=== PATIENT | female | born 1940 | race Caucasian/White ===

== ENCOUNTER → 2023-10-28 14:37 | Outpatient (REF) | payer MEDICARE, BC, SELFPAY | LOC: HWRAD 14:37 | PROVIDERS: ATTENDING PHYSICIAN Family Medicine | DX: Z78.0 Asymptomatic menopausal state (principal); R13.19 Other dysphagia; R07.89 Other chest pain | CPT/HCPCS: 71046; 77080 ==

== ENCOUNTER → 2023-11-12 10:35 | Outpatient (REF) | payer MEDICARE, BC, SELFPAY | LOC: HWRAD 10:35 | PROVIDERS: ATTENDING PHYSICIAN Family Medicine | DX: E04.1 Nontoxic single thyroid nodule (principal) | CPT/HCPCS: 76536 ==

== ENCOUNTER → 2023-12-18 14:45 | Outpatient (REF) | payer MEDICARE, BC, SELFPAY | LOC: RCS 14:45 | PROVIDERS: ATTENDING PHYSICIAN Internal Medicine Cardiovascular Disease; FAMILY PHYSICIAN Family Medicine | DX: I25.10 Atherosclerotic heart disease of native coronary artery without angina pectoris (principal); I42.9 Cardiomyopathy, unspecified; I10 Essential (primary) hypertension | CPT/HCPCS: 93306 ==

== ENCOUNTER → 2024-12-16 13:00 | Outpatient (REF) | payer MEDICARE, BC, SELFPAY | LOC: SDSPAT 13:00 | PROVIDERS: ATTENDING PHYSICIAN Student in an Organized Health Care Education/Training Program; FAMILY PHYSICIAN Family Medicine; REFERRING PHYSICIAN Internal Medicine Cardiovascular Disease | DX: I48.0 Paroxysmal atrial fibrillation (principal); I47.29 Other ventricular tachycardia | CPT/HCPCS: 93005 ==

== ENCOUNTER 2024-12-21 08:18 | Day surgery (SDC) | payer MEDICARE, BC, SELFPAY ==
[2024-12-16 13:26] VITALS: BMI 32.1
[2024-12-21 09:09] VITALS: BMI 32.0
== END 2024-12-21 10:30 | disposition home or self-care (01) ==
LOC: CATH 08:18
PROVIDERS: ATTENDING PHYSICIAN Student in an Organized Health Care Education/Training Program; FAMILY PHYSICIAN Family Medicine; OTHER PHYSICIAN Internal Medicine Cardiovascular Disease
DX: I48.91 Unspecified atrial fibrillation (principal); I47.20 Ventricular tachycardia, unspecified; I11.0 Hypertensive heart disease with heart failure; I50.42 Chronic combined systolic (congestive) and diastolic (congestive) heart failure; I42.9 Cardiomyopathy, unspecified; E78.5 Hyperlipidemia, unspecified; M85.80 Other specified disorders of bone density and structure, unspecified site; G47.33 Obstructive sleep apnea (adult) (pediatric); K21.9 Gastro-esophageal reflux disease without esophagitis; E66.9 Obesity, unspecified; Z68.32 Body mass index [BMI] 32.0-32.9, adult; Z79.899 Other long term (current) drug therapy; Z79.01 Long term (current) use of anticoagulants; Z88.1 Allergy status to other antibiotic agents; Z88.8 Allergy status to other drugs, medicaments and biological substances; Z91.048 Other nonmedicinal substance allergy status; K22.2 Esophageal obstruction; I49.1 Atrial premature depolarization; I25.10 Atherosclerotic heart disease of native coronary artery without angina pectoris; E11.9 Type 2 diabetes mellitus without complications; Z90.710 Acquired absence of both cervix and uterus
CPT/HCPCS: 93312; 93320; 93325; 92960; 93005

== ENCOUNTER → 2025-03-08 11:11 | Outpatient (REF) | payer MEDICARE, BC, SELFPAY | LOC: HWRCS 11:11 | PROVIDERS: ATTENDING PHYSICIAN Internal Medicine Cardiovascular Disease; FAMILY PHYSICIAN Family Medicine | DX: I42.9 Cardiomyopathy, unspecified (principal); I48.0 Paroxysmal atrial fibrillation | CPT/HCPCS: 78452; 93017; A9500; J2785 ==

== ENCOUNTER 2025-05-01 21:30 | Inpatient (IN) | payer MEDICARE, BC, SELFPAY ==
[2025-05-01] VITALS (9 sets, daily range): BP systolic 115–168; BP diastolic 48–84; BMI 32.7
[2025-05-01 17:56] LABS: Hematocrit 33.4 % (37.0-47.0); Hemoglobin 10.8 g/dL (12.0-16.0); Mean Corp Hgb Conc. 32.3 g/dL (33.0-37.0); Mean Corpuscular Volume 93.0 fL (81.0-99.0); Nucleated Red Blood Cells % 0 %; Platelet Count 279 10^3/uL (130-400); Red Cell Dist. Width 14.1 % (11.5-14.5)
[2025-05-01 18:09] LABS: ALT (SGPT) 90 U/L (0-35); AST (SGOT) 57 U/L (14-36); Albumin 3.5 g/dl (3.5-5.0); Alkaline Phosphatase 88 U/L (38-126); Blood Urea Nitrogen 19 mg/dl (7-17); Calcium 8.8 mg/dl (8.4-10.2); Carbon Dioxide 28 mmol/L (22-30); Chloride 99 mmol/L (98-107); Glucose 133 mg/dl (70-99); Sodium 131 mmol/L (135-145); Total Protein 5.7 g/dl (6.3-8.2); eGFR > 60.00
[2025-05-01 18:13] LABS: Troponin I 0.014 ng/ml
[2025-05-01 18:15] LABS: Potassium 4.2 mmol/L (3.5-5.1)
--- NOTE | 2025-05-01 18:15 | ED.GENMED ---
History of Present Illness
General
Chief Complaint: Breathing Problem
Source: patient and family
Exam Limitations: none
Time Seen by Provider: 05/01/25 18:12
History of Present Illness
History of Present Illness:
Patient complaining of significant dyspnea on exertion progressive over 3 to 4 days. Also bilateral leg edema. No chest pain chest pressure or syncope. She did fall and hit her head 3 days ago however. No ongoing headache. Patient is
anticoagulated. History of PAF. Cardioverted in March 2025 minimal to no symptoms at rest
Past History
Past History
ED Past Medical History: CAD, HTN and Hypercholesterolemia
ED Past Surgical History: Cardiac, Gynecological and Tonsilectomy
Social History
Living: with family
Review of Systems
Review of Systems
All Other Systems: Not applicable
Constitutional: Denies fever
Respiratory: Denies cough
Cardiac: Denies chest pain or syncope
Phy Exam
Physical Exam
Physical Exam:
GENERAL: Alert and oriented in no apparent distress. No obvious scalp trauma
EYE: Orbits normal.
NECK: Supple, nontender
ENT: Pharynx without erythema
CARDIAC: Mildly irregular normal rate.
LUNGS: No respiratory distress at rest. Decreased breath sounds diffusely. A few dry rales in the bases
ABDOMEN: Soft, without focal tenderness or distention
NEUROLOGICAL: Alert and oriented , grossly non-focal
SKIN: Warm and dry, no rash or lesion, no discoloration, skin intact.
MUSCULOSKELETAL: Moderate bilateral lower extremity pitting edema
PSYCH: Normal and appropriate interaction.
Scores
Heart Failure Risk
Heart Failure Risk Score: Yes
History of Stroke or TIA: No
History of intubation for respiratory distress: No
Heart rate on ED arrival >/= 110: No
SaO2 <90% on arrival on room air: No
HR >/=110 during 3min walk test (or too ill to perform test): Yes
ECG has acute ischemic changes: No
Urea >/=12mmol/L (BUN 33.6mg/dL): No
Serum CO2>/=35mmol/L: No
Troponin I or T elevated to UT Level (0.4mg/dL): No
NT-proBNP >/=5,000ng/L (5,000pg/ml): Yes
HF Risk Score: 3
Admission Status: HIGH RISK 15.9% Consider SNF treatment or admission to hospital
Course
Orders/Labs/Results
Orders:
Orders
05/01/25 17:29
Electrocardiogram (*1) Urgent
Reason for Study: Shortness of Breath
CT Head W/o Iv Contrast Urgent
Comment:
Reason For Exam: Head injury
CR Chest - 2 Views Urgent
Comment:
Reason For Exam: SOB
05/01/25 17:30
EKG- Treatment ONCE
05/01/25 17:37
Complete Blood Count/With Diff Urgent
Comprehensive Metabolic Panel Urgent
NT-proBNP Urgent
Troponin I Urgent
05/01/25 18:13
CT Cervical Spine W/o Iv Contr Urgent
Comment:
Reason For Exam: Head injury
Cardiac Monitoring- Treatment ONCE
05/01/25 18:49
Furosemide [Lasix] 40 mg IV NOW STA
Abnormal Lab Results
05/01/25
17:37
RBC 3.59 L 10^6/uL
(4.20-5.40)
Hgb 10.8 L g/dL
(12.0-16.0)
Hct 33.4 L %
(37.0-47.0)
MCHC 32.3 L g/dL
(33.0-37.0)
Absolute Lymphs (auto) 1.0 L 10^3/uL
(1.2-3.4)
Absolute Monos (auto) 0.7 H 10^3/uL
(0.1-0.6)
Lymphocytes % 14.3 L %
(20.5-51.1)
Monocytes % 9.6 H %
(1.7-9.3)
Sodium 131 L mmol/L
(135-145)
BUN 19 H mg/dl
(7-17)
Glucose 133 H mg/dl
(70-99)
AST 57 H U/L
(14-36)
ALT 90 H U/L
(0-35)
Total Protein 5.7 L g/dl
(6.3-8.2)
05/01/25 17:37
05/01/25 17:37
Vital Signs
Initial and Last Documented VS:
Initial Vital Signs
Temp Pulse Resp BP Pulse Ox
97.5 F 65 20 168/81 97
05/01/25 17:25 05/01/25 17:25 05/01/25 17:25 05/01/25 17:25 05/01/25 17:25
Last Documented Vital Signs
Temp Pulse Resp BP Pulse Ox
97.5 F 71 20 116/48 99
05/01/25 17:25 05/01/25 19:03 05/01/25 17:25 05/01/25 19:03 05/01/25 18:38
MDM/Problems Addressed
Differential Diagnosis Includes:
Patient with moderate weight gain, peripheral edema, dyspnea on exertion. Would all be consistent with CHF. Possibly her currently being in atrial fibrillation with an EF of 42% may be the issue. However she is very rate controlled. This also
could be an ischemic presentation. IV Lasix at admission. As far as hitting her head she is awake and alert this happened days ago. CT scans reviewed by myself and are unremarkable. If remained stable will be admitted medically
*Radiology
Radiology exam reviewed: preliminary read by ED provider (Mild cephalization)
*Pulse Oximetry
SaO2: 97
Oxygen Mode of Delivery: Room air
Patient hypoxic: no
*EKG
Interpretation: abnormal
Comparison EKG: changes noted
Heart Rate: 72
Rate: normal
Rhythm: a-fib
Saffell: left axis deviation
QRS Pattern: left vent hypertrophy
Ischemia: non-specific ST changes
*Critical Care Note
Total Time (30-74mins, 75-104mins- exclusive of procedures): Not Applicable
ED Attending Note
-
Portions of this chart may have been created with voice recognition software.� Occasional wrong word or��sound alike� substitutions may have occurred due to the inherent limitations of voice recognition software.
Discharge Plan
Departure
Patient Disposition: Admit
Date of Disposition: 05/01/25
Time of Disposition: 19:26
Presentation/result/management discussed w/ accepting MD/DO: Hospitalist
Discharge Problem:
Dyspnea on exertion/CHF, Paroxysmal rate controlled atrial fibril, Possible ischemic heart disease, Recent minor head injury/anticoagulated
Prescriptions:
No Action
atorvastatin 20 mg Tablet
20 mg PO DAILY
isosorbide mononitrate 30 mg Tablet Extended Release 24 Hr
30 mg PO QPM
amlodipine 5 mg Tablet
5 mg PO DAILY
omeprazole 40 mg Capsule,Delayed Release(Dr/Ec)
40 mg PO DAILY
potassium chloride [Klor-Con M20] 20 mEq Tablet,Er Particles/Crystals
20 meq PO QPM
valsartan-hydrochlorothiazide 160-25 mg Tablet
1 tab PO DAILY
calcium carbonate-vitamin D3 [Calcium 500 + D] 500 mg-10 mcg (400 unit) Tablet
1 tab PO QPM
Eliquis 5 mg Tablet
5 mg PO BID
diphenhydramine HCl [Benadryl] 25 mg Capsule
25 mg PO HSPRN PRN (Reason: sleep)
nebivolol [Bystolic] 20 mg Tablet
20 mg PO DAILY
Referrals:
NONE,* [Active, Internal Medicine]
Interventions
Interventions:
*Risk Screen - Suicide Last Done: 05/01/25 18:42
*General Assessment Last Done: 05/01/25 17:25
*Neglect/Abuse Screening Last Done: 05/01/25 18:42
*ED COVID-19 Vaccine History Last Done: 05/01/25 18:42
*ED Influenza Vaccine History Last Done: 05/01/25 18:42
ED- Cardiac Assessment Last Done: 05/01/25 18:42
ED- Pulmonary Assessment Last Done: 05/01/25 18:42
Discharge Date and Time
Print Language: MARSHALLESE
[2025-05-01] MEDS: LASIX 40 MG IV (19:03)
--- NOTE | 2025-05-01 20:18 | HPS.HSE ---
Family Physician
-
Family Physician: Neno Sapp
Chief Complaint
-
SoB, leg swelling and Fall
History of Present Illness
84F HX AF recent CV in Mar 2025 on Eliquis, HX CAD, HTN, HLD seen at ER:
- pw b/l lower leg swelling
- SOB with exertion for last 3-4 days
- fell and hit back , and side of the head 3 days ago
- denied ongoing GALLAGHER
Medical History
Past Medical History
Past Medical History: Reports Arrhythmia (HX Prx AF ), HTN and Hypercholesterolemia
Past Surgical History: Reports Cardiac, Gynocological and Tonsilectomy
Social History
Tobacco: Non-smoker
Living: With Family
Family History
Family History: Not pertinent
Allergies / Home Medications
Allergies reflects when Allergies were last updated in [employer].
Home Medications with original date entered in [employer]
Allergy/Medication List:
Allergies
Allergy/AdvReac Type Severity Reaction Status Date / Time
adhesive tape (Adhesive Tape) Allergy Rash Verified 05/01/25 17:25
bacitracin (From Neosporin) Allergy Rash Verified 05/01/25 17:25
bacitracin zinc (From Allergy Unknown Verified 05/01/25 17:25
Neosporin)
gramicidin D (From Neosporin) Allergy Rash Verified 05/01/25 17:25
moxifloxacin HCl (From Allergy headaches Verified 05/01/25 17:25
Avelox)
neomycin sulfate (From Allergy Rash Verified 05/01/25 17:25
Neosporin)
polymyxin B (From Neosporin) Allergy Rash Verified 05/01/25 17:25
polymyxin B sulfate (From Allergy Rash Verified 05/01/25 17:25
Neosporin)
Home Medications
amlodipine 5 mg tablet 5 mg PO DAILY Blood Pressure 12/16/24
apixaban 5 mg tablet (Eliquis) 5 mg PO BID Blood Clot Prevention/Tx 12/16/24
atorvastatin 20 mg tablet 20 mg PO DAILY High Cholesterol 12/16/24
calcium 500 mg (as carbonate)-vitamin D3 10 mcg (400 unit) tablet (Calcium 500 + D) 1 tab PO QPM Supplement 12/16/24
isosorbide mononitrate 30 mg tablet,extended release 24 hr 30 mg PO QPM Heart Disease/Condition 12/16/24
omeprazole 40 mg capsule,delayed release 40 mg PO DAILY Gastrointestinal Issue 12/16/24
potassium chloride 20 mEq tablet,extended release(part/cryst) (Klor-Con M) 20 meq PO QPM Electrolyte Repletion 12/16/24
valsartan 160 mg-hydrochlorothiazide 25 mg tablet 1 tab PO DAILY Heart Disease/Condition 12/16/24
diphenhydramine HCl 25 mg capsule (Benadryl) 25 mg PO HSPRN PRN sleep 12/21/24
nebivolol 20 mg tablet (Bystolic) 20 mg PO DAILY Heart Disease/Condition 05/01/25
Review of Systems
-
Constitutional: Reports No Symptoms
EENT: Reports No Symptoms
Respiratory: Reports See HPI
Cardiac: Reports See HPI; Denies Chest Pain
Abdomen/GI: Reports No Symptoms
: Reports No Symptoms
Musculoskeletal: Reports No Symptoms
Skin: Reports No Symptoms
Neurological: Reports No Symptoms
Endocrine: Reports No Symptoms
Hematologic/Lymphatic: Reports No Symptoms
Psych: Reports No Symptoms
Physical Exam
Vital Signs
Vital Signs
Temp Pulse Resp BP Pulse Ox
97.5 F 71 20 116/48 99
05/01/25 17:25 05/01/25 19:03 05/01/25 17:25 05/01/25 19:03 05/01/25 18:38
Physical Exam
General: Well Developed, Well Nourished and No Apparent Distress
HEENT: NormoCephalic, Moist mucous membranes and Atraumatic
Respiratory: Clear
Cardiac: S1/S2 and Regular Rhythm; No Murmur or Rub
GI: Soft, Non Tender, Non Distended and Normal Bowel Sounds; No Organomegaly
Rectal: Deferred by Provider
Musculoskeletal: No Clubbing, No Cyanosis and No Edema
Skin: No Rash
Neuro: Nonfocal/grossly intact
Laboratory Results
-
05/01/25 17:37
05/01/25 17:37
Laboratory Results
Total Bilirubin 0.6 mg/dl (0.2-1.3) 05/01/25 17:37
AST 57 U/L (14-36) H 05/01/25 17:37
ALT 90 U/L (0-35) H 05/01/25 17:37
Alkaline Phosphatase 88 U/L (38-126) 05/01/25 17:37
Troponin I 0.014 ng/ml 05/01/25 17:37
Impression/Plan
-
Vital Signs
Temp Pulse Resp BP Pulse Ox
97.5 F 71 20 116/48 99
05/01/25 17:25 05/01/25 19:03 05/01/25 17:25 05/01/25 19:03 05/01/25 18:38
Wt trend
12/16/24
13:26 12/21/24
09:09 05/01/25
18:51
Actual Weight 74.5 kg 74.389 kg 76.8 kg
05/25/15 05/01/25
15:22 17:37
Hgb 12.2 10.8 L
MCV 89.7 93.0
Sodium 131 L
BUN 19 H
Creatinine 0.8
eGFR > 60.00
Troponin I 0.014
Boj-X-Dozsilrdcuy Pept 7280
CXR:
No acute cardiopulmonary process.
HCT
No acute intracranial abnormality.
CX spine CT wo IV
No CT evidence for an acute posttraumatic abnormality of the cervical spine.
EKG:
UNDETERMINED RHYTHM
LEFT AXIS DEVIATION
LEFT VENTRICULAR HYPERTROPHY WITH QRS WIDENING ( R in aVL , Everardo product )
ABNORMAL QRS-T ANGLE, CONSIDER PRIMARY T WAVE ABNORMALITY
ABNORMAL ECG
WHEN COMPARED WITH ECG OF 21-Dec-2024 09:57,
CURRENT UNDETERMINED RHYTHM PRECLUDES RHYTHM COMPARISON, NEEDS REVIEW
03/08/[address] [facility] Cardiac Nuc Radha Stress
Small, moderate fixed apical lateral defect consistent with normal wall motion most consistent with soft tissue attenuation.
Negative ECG for ischemia with Lexiscan infusion.
Systolic function is mildly reduced. The ejection fraction is 42%.
Mild hypokinesis of the basal and mid inferior and inferoseptal rodas. No associated infarction or ischemia seen in this distribution.
Would consider further evaluation with echocardiogram if clinically significant.
Stress Risk is moderate risk study (1 - 3% TN or /year)
12/21/24 JOEL
LVEF 50-55%.
No significant valvular disease.
No left atrial appendage thrombus.
No significant change compared to prior echocardiogram in December 2023.
NO PRIOR hospitalist admission:
ASSESSMENT & PLAN
Pending Rx reconciliation
Acute progressive Faulkner with adequate Oxygenation on RA + New b/l Flynn edema
Elevated p BNP
LVEF 42% NMNuc Radha Stress 03/08/25
HX CAD - suspect ICM
- presumed acute HF suspect decompensated HFrEF
- IV lasix 20 mg BID
- Daily IOs, Wt
- Daily BMP
- CBC card consult to consider ischemic w/u ( Known to Dr Esteban)
HX AF recent CV in Mar 2025
- on Eliquis
- on Nebivolol
HX CAD
- No CP
- NEG TPNI
- unremarkable EKG
- c/w IMN and BB
HLD
- c/w Lipitor
pHTN
- c/w Valsartan
- Hold HCTZ while IV Diuresis
DVT Px:on chr Eliquis
Full code
IP TLM
Case dw RN daughter at bed side
--- NOTE | 2025-05-01 22:04 | PTCARENOTE ---
Patient arrived from the ED via stretcher accompanied by family. Patient ambulated into the room with assistance of staff. AAOx3, VSS. Has frequency and urgency due to diuresis. Brought own briefs from home. No use of assisted devices. Patient
oriented to the room and updated on plan of care. Call long is within reach.
[2025-05-01] MEDS: ELIQUIS 5 MG PO (22:42)
[2025-05-02 03:40] VITALS: BP 140/69
[2025-05-02 05:13] VITALS: BMI 32.5
--- NOTE | 2025-05-02 07:43 | W.PN.HOSP.TC ---
Today's Communication/Plan
-
see a/p
Assessment / Plan
Assessment / Plan
Physical Exam
General: no acute distress, appears comfortable at this time.
HEENT: NormoCephalic, Moist mucous membranes and Atraumatic, hard of hearing
Respiratory: Clear
Cardiac: S1/S2 Irregularly irregular Rhythm; No Murmur or Rub
GI: Soft, Non Tender, Non Distended and Normal Bowel Sounds; No Organomegaly
Musculoskeletal: No Clubbing, No Cyanosis and No Edema
Skin: No Rash
Neuro: AOx3 conversant coherent
84F HX AF recent Cardioversion in Mar 2025 on Eliquis, HX CAD, HTN, HLD pw b/l lower leg swelling and SOB with exertion.
Acute progressive Faulkner with adequate Oxygenation on RA + New b/l Flynn edema
Elevated p BNP
LVEF 42% NMNuc Radha Stress 03/08/25
HX CAD - suspect ICM
- presumed acute HF suspect decompensated HFrEF
- IV lasix 20 mg BID
- Daily IOs, Wt
- Daily BMP
- ECHO appreciated EF35-40% mod severe tricuspid regurgitation
- Cardio consult appreciated spironolactone started
HX AF recent CV in Mar 2025
- on Eliquis
- on Nebivolol
HX CAD
- No CP
- NEG TPNI
- unremarkable EKG
- c/w IMN and BB
HLD
- c/w Lipitor
pHTN
- c/w Valsartan
- Hold HCTZ while IV Diuresis
DVT Px:on chr Eliquis
Full code
IP TLM
Discussed with patient and patient's daughter Asuncion
I spent a total of 45 minutes with the patient or on the floor. More than 50% of this time involved counseling and coordination of care.
Anticipated Discharge: 24 - 48 hours
Subjective/Interval History
-
Date of Service: May 02, 2025
Seen and examined at bedside in no acute distress sitting up comfortably in bed. Hard of hearing. Reports significant improvement in overall symptoms including SOB and lower ext swelling. Daughter Asuncion present during evaluation.
Objective Data
-
Labs:
Laboratory Results
05/02/25
07:03
Sodium Pending
Potassium Pending
Chloride Pending
Carbon Dioxide Pending
BUN Pending
Creatinine Pending
Glucose Pending
Calcium Pending
Vital Signs:
Vital Signs
Temp Pulse Resp BP Pulse Ox
98.3 F 74 18 140/69 94
05/02/25 03:40 05/02/25 03:40 05/02/25 03:40 05/02/25 03:40 05/02/25 03:40
I&O
05/01/25 05/02/25 05/03/25
06:59 06:59 06:59
Intake Total 480 / 480
Output Total 1350 / 1350
Balance -870 / -870
[2025-05-02 08:04] VITALS: BP 138/61
[2025-05-02 08:51] LABS: Blood Urea Nitrogen 16 mg/dl (7-17); Calcium 8.6 mg/dl (8.4-10.2); Carbon Dioxide 31 mmol/L (22-30); Chloride 99 mmol/L (98-107); Estimated Creatinine Clearance 54 ml/min; Glucose 99 mg/dl (70-99); HDL Cholesterol 43 mg/dl; LDL Cholesterol, Calculated 46 mg/dl; Potassium 3.5 mmol/L (3.5-5.1); Sodium 133 mmol/L (135-145); Very Low Density Lipoprotein 10 mg/dl (0-30); eGFR > 60.00
--- NOTE | 2025-05-02 08:52 | CON.CAR ---
Addendum entered and electronically signed by Grey Linn MD 05/02/25 11:22:
I saw and evaluated the patient, and I provided the substantive portion of the medical decision making.
I reviewed and agree with the note by Ms Tompkins and it accurately reflects our care.
I personally performed the medical decision making of the this encounter and my assessment and plan is below:
Recent stress test showed normal perfusion, however, EF was mild to moderately reduced at 40%. Echocardiogram today shows EF 35-40%. Possibly in relation to worsening of A-fib. Continue IV diuresis. We will ferrara Entresto. Start spironolactone
12.5 mg.
Original Note:
Consultation
Consultation Request
Date/Time Consultation Requested: 05/01/2025 22:30
Date/Time Consultation Performed: 05/02/2025 09:00
Requesting Provider: Dr. Ashley
Performing Provider: RAJIV Eaton for Dr. Linn
Reason for Consultation: Acute on chronic heart failure
Medical History
-
Chief Complaint: Dyspnea on exertion
History of Present Illness:
Jennifer Nair is an 84-year-old female (known to Dr. Esteban, her primary spooler operator automatic), with a past medical history of paroxysmal atrial fibrillation, NSVT, coronary artery disease, PVCs, hypertension, hyperlipidemia and cardiomyopathy (EF of 45
to 50%, recovered 50-55%)�who presented to the emergency department with CONNELLY. She endorses associated bilateral lower extremity edema. She reports she fell and did hit her head 3 days prior to arrival. Head CT did not have any acute pathology.
She received intravenous furosemide in the emergency department last evening. She is feeling improved. She is not having any chest pain, palpitations nor syncope/presyncope.
Past Medical History
Past Medical History: Arrhythmias (Paroxysmal atrial fibrillation, NSVT, PVCs), CAD, CHF (Unspecified cardiomyopathy), HTN and Hypercholesterolemia
Past Surgical History: Gynecological, Tonsilectomy and Urological
Social History
Tobacco: Non-Smoker
Alcohol: Occasional
Family History
Family History: Reviewed & Not Pertinent
Allergies / Home Medications
Allergy/AdvReac Type Severity Reaction Status Date / Time
adhesive tape (Adhesive Tape) Allergy Rash Verified 05/01/25 17:25
bacitracin (From Neosporin) Allergy Rash Verified 05/01/25 17:25
bacitracin zinc (From Allergy Unknown Verified 05/01/25 17:25
Neosporin)
gramicidin D (From Neosporin) Allergy Rash Verified 05/01/25 17:25
moxifloxacin HCl (From Allergy headaches Verified 05/01/25 17:25
Avelox)
neomycin sulfate (From Allergy Rash Verified 05/01/25 17:25
Neosporin)
polymyxin B (From Neosporin) Allergy Rash Verified 05/01/25 17:25
polymyxin B sulfate (From Allergy Rash Verified 05/01/25 17:25
Neosporin)
�Medication �Instructions �Recorded �Confirmed �Type
amlodipine 5 mg tablet 5 mg PO DAILY Blood Pressure 12/16/24 05/01/25 History
apixaban 5 mg tablet (Eliquis) 5 mg PO BID Blood Clot 12/16/24 05/01/25 History
Prevention/Tx
atorvastatin 20 mg tablet 20 mg PO DAILY High Cholesterol 12/16/24 05/01/25 History
calcium 500 mg (as 1 tab PO QPM Supplement 12/16/24 05/01/25 History
carbonate)-vitamin D3 10 mcg (400
unit) tablet (Calcium 500 + D)
isosorbide mononitrate 30 mg 30 mg PO QPM Heart 12/16/24 05/01/25 History
tablet,extended release 24 hr Disease/Condition
omeprazole 40 mg capsule,delayed 40 mg PO DAILY Gastrointestinal 12/16/24 05/01/25 History
release Issue
potassium chloride 20 mEq 20 meq PO QPM Electrolyte Repletion 12/16/24 05/01/25 History
tablet,extended
release(part/cryst) (Klor-Con M)
valsartan 160 1 tab PO DAILY Heart 12/16/24 05/01/25 History
mg-hydrochlorothiazide 25 mg tablet Disease/Condition
diphenhydramine HCl 25 mg capsule 25 mg PO HSPRN PRN sleep 12/21/24 05/01/25 History
(Benadryl)
nebivolol 20 mg tablet (Bystolic) 20 mg PO DAILY Heart 05/01/25 05/01/25 History
Disease/Condition
Review of Systems
-
History Source: Patient
All other systems: Negative unless noted
Constitutional: Fatigue
Respiratory: Trouble Breathing
Cardiac: No Symptoms
Abdomen/GI: No Symptoms
: No Symptoms
Musculoskeletal: Edema
Skin: No Symptoms
Neurological: No Symptoms
Endocrine: No Symptoms
Hematologic/Lymphatic: No Symptoms
Physical Exam
Vital Signs
Temp Pulse Resp BP Pulse Ox
98.2 F 63 17 138/61 95
05/02/25 08:04 05/02/25 08:04 05/02/25 08:04 05/02/25 08:04 05/02/25 08:04
Lab Results
05/01/25 17:37
Troponin I 0.014 ng/ml 05/01/25 17:37
Xok-Y-Ofezaukehyo Pept 7280 pg/ml 05/01/25 17:37
Physical Exam
General: Well Developed, Well Nourished, No Apparent Distress and Comfortable
HEENT: Normocephalic, Anicteric and Moist Mucous Membranes
Respiratory: Clear and Non Labored Respirations
Cardiac: S1/S2 and Irregular Rhythm
Breast: Deferred by me
GI: Soft, Non Tender, Non Distended and Normal Bowel Sounds
Rectal: Deferred by Provider
Genito-urinary: No Costovertebral Tender
Musculoskeletal: No Clubbing and No Cyanosis
Skin: Warm and Dry
Neuro: Awake and Alert
Hematologic/Lymphatic: No Lymphadenopathy
Psych: Calm
Impression / Plan
-
I/P: 84F with paroxysmal atrial fibrillation, NSVT, coronary artery disease, PVCs, hypertension, hyperlipidemia and cardiomyopathy (EF of 45 to 50%)�who presented to the emergency department with CONNELLY.
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 Esteban
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
NICM
- Diuresis with furosemide 40 mg IV twice daily, this requires intensive monitoring
- Stop HCTZ, she will be on oral furosemide at discharge
- GDMT as tolerated:
- Beta-bernie: Nebivolol 20 mg daily, consider transitioning to metoprolol succinate
- ISAIAH/ARB/ARNI: Valsartan 160 mg daily, case management to ferrara sacubitril�valsartan
- MRA: Spironolactone 12.5 mg daily started 05/02/2024
- SGLT2i: None due to chronic UTIs
- Isosorbide/hydralazine: Isosorbide mononitrate 30 mg daily
- ICD: Reassess LVEF after 3 months of maximally tolerated GDMT
- HF education
- Trend daily weight, I/O, and BMP with diuresis
- Echocardiogram today
Paroxysmal versus persistent atrial fibrillation
- This may be a contributing factor to her heart failure
- Given NSVT, dofetilide is not an option - she saw EP as an outpatient and the plan was for ablation
- DCCV 12/21/2024
- Oral Anticoagulation: Apixaban 5 mg twice daily, she denies missed doses, she denies abnormal bleeding
- [id number]: Score at least 6 (Heart failure, HTN, age 75 or more, Vascular disease, female gender)
CAD
- Stable without chest pain
- Lexiscan nuclear stress test negative for ischemia 03/08/2025
- LHC at [facility] with 60 to 70% mLAD and luminal irregularities in the circumflex and PDA
NSVT
- 5 runs of NSVT, longest 26 beats on an extended Holter
- Continue beta-bernie
Recent fall, with head strike, head CT stable
Hypercholesterolemia, on atorvastatin 20 mg, most recent LDL 65
Prediabetes, managed by PCP
DATA:
Transthoracic echocardiogram, 05/02/2025:
SUMMARY
1. Normal LV size with moderately reduced systolic function.
2. LVEF is 35-40% by visual estimation. Global diffuse hypokinesis.
3. Normal RV size and function.
4. Moderate to severe tricuspid regurgitation.
5. Severely elevated estimated PASP at 80 mmHg.
6. Compared to prior from December 18, 2023, LVEF is now moderately reduced estimated at 35-40%, previously 50-55% and TR is now moderate to severe with severely elevated estimated PASP, previously mild TR and normal estimated PASP.
Data Reviewed
-
EKG: Report Reviewed by me
Medical Tests (Nuc Med, Echo etc): Report Reviewed by me
Labs: Labs Reviewed by me
Old Records: Reviewed
[2025-05-02] MEDS: LIPITOR 20 MG PO (10:04)
[2025-05-02] MEDS: LOPRESSOR 100 MG PO ×2 (10:04→19:42)
[2025-05-02] MEDS: ELIQUIS 5 MG PO ×2 (10:04→19:42)
[2025-05-02] MEDS: NORVASC 5 MG PO (10:04)
[2025-05-02] MEDS: DIOVAN 160 MG PO (10:04)
[2025-05-02] MEDS: LASIX 40 MG IV ×2 (10:05→16:17)
[2025-05-02 11:11] VITALS: BP 109/80
[2025-05-02] MEDS: ALDACTONE 12.5 MG PO (11:31)
--- NOTE | 2025-05-02 12:47 | CM ---
Alert awake oriented patient who lives with her dgt Asuncion in a 2 story home with 3 steps to enter and 13 steps[address] . She is independent with ADLs.No adaptive devices.
No VN/SNF hx
Pharmacy [facility]
PCP Dr Sapp
PLAn Home no needs
[2025-05-02 15:20] VITALS: BP 140/67
[2025-05-02] MEDS: KCL 20 MEQ PO (17:40)
[2025-05-02] MEDS: IMDUR (EXTENDED RELEASE) 30 MG PO (17:40)
[2025-05-02 19:06] VITALS: BP 120/75
[2025-05-02 23:10] VITALS: BP 147/63
[2025-05-03 03:37] VITALS: BP 138/62
[2025-05-03 06:00] VITALS: BMI 31.3
[2025-05-03 06:26] LABS: Hematocrit 31.4 % (37.0-47.0); Hemoglobin 10.4 g/dL (12.0-16.0); Mean Corp Hgb Conc. 33.1 g/dL (33.0-37.0); Mean Corpuscular Volume 90.2 fL (81.0-99.0); Platelet Count 240 10^3/uL (130-400); Red Cell Dist. Width 14.0 % (11.5-14.5)
[2025-05-03 07:00] VITALS: BP 155/67
[2025-05-03 07:08] LABS: Blood Urea Nitrogen 16 mg/dl (7-17); Calcium 8.4 mg/dl (8.4-10.2); Carbon Dioxide 31 mmol/L (22-30); Chloride 99 mmol/L (98-107); Estimated Creatinine Clearance 53 ml/min; Glucose 88 mg/dl (70-99); Magnesium 1.6 mg/dl (1.6-2.3); Potassium 3.3 mmol/L (3.5-5.1); Sodium 133 mmol/L (135-145); eGFR > 60.00
--- NOTE | 2025-05-03 07:59 | W.PN.CD ---
Today's Communication / Plan
-
amiodarone 400mg po bid x 7 days and then 200mg bid for 7 days and then 200mg daily until ablation.
home on furosemide 40mg daily
metoprolol succinate 100mg daily
home on spironolactone --new
stop nebivolol and hctz
labs in 1 week and 3 weeks---order sent through [facility]
office will call to schedule DCCV and pvi
ok for discharge home
I updated her daughter Elizabeth as to the plan
Impression / Plan
-
I/P: 84F with paroxysmal atrial fibrillation, NSVT, coronary artery disease, PVCs, hypertension, hyperlipidemia and cardiomyopathy (EF of 45 to 50%)�who presented to the emergency department with CONNELLY.
Primary shop coordinator: Dr. Esteban
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
NICM
- Diuresis with furosemide 40 mg IV twice daily, this requires intensive monitoring--> home on 40mg daily
- Stop HCTZ, she will be on oral furosemide at discharge
- GDMT as tolerated:
- Beta-bernie: Nebivolol 20 mg daily, transition to 100mg succinate daily given amiodarone loading
- ISAIAH/ARB/ARNI: Valsartan 160 mg daily, case management to ferrara sacubitril�valsartan
- MRA: Spironolactone 12.5 mg daily started 05/02/2024---renal panel in 1 week
- SGLT2i: None due to chronic UTIs
- Isosorbide/hydralazine: Isosorbide mononitrate 30 mg daily
- ICD: Reassess LVEF after 3 months of maximally tolerated GDMT
- HF education
- Trend daily weight, I/O, and BMP with diuresis
- Echocardiogram today
Paroxysmal versus persistent atrial fibrillation
- This may be a contributing factor to her heart failure
- Given NSVT, dofetilide is not an option - she saw EP as an outpatient and the plan was for ablation, this is yet to be scheduled
-will start po Amiodarone load and have her return for cardioversion in 7-10 days
-Will give 400mg of po amiodarone now and then have her take amiodarone 400mg po bid x 7 days and then 200mg bid for 7 days and then 200mg daily until ablation.
- DCCV 12/21/2024
- Oral Anticoagulation: Apixaban 5 mg twice daily, she denies missed doses, she denies abnormal bleeding
- [id number]: Score at least 6 (Heart failure, HTN, age 75 or more, Vascular disease, female gender)
CAD
- Stable without chest pain
- Lexiscan nuclear stress test negative for ischemia 03/08/2025
- LHC at [facility] with 60 to 70% mLAD and luminal irregularities in the circumflex and PDA
NSVT
- 5 runs of NSVT, longest 26 beats on an extended Holter
- Continue beta-bernie
Recent fall, with head strike, head CT stable
Hypercholesterolemia, on atorvastatin 20 mg, most recent LDL 65
Prediabetes, managed by PCP
DATA:
Transthoracic echocardiogram, 05/02/2025:
SUMMARY
1. Normal LV size with moderately reduced systolic function.
2. LVEF is 35-40% by visual estimation. Global diffuse hypokinesis.
3. Normal RV size and function.
4. Moderate to severe tricuspid regurgitation.
5. Severely elevated estimated PASP at 80 mmHg.
6. Compared to prior from December 18, 2023, LVEF is now moderately reduced estimated at 35-40%, previously 50-55% and TR is now moderate to severe with severely elevated estimated PASP, previously mild TR and normal estimated PASP.
Physical Exam
Vital Signs/Labs
Vital Signs
Temp Pulse Resp BP Pulse Ox
98.4 F 68 20 138/62 92
05/03/25 03:37 05/03/25 03:37 05/03/25 03:37 05/03/25 03:37 05/03/25 03:37
05/02/25 05/03/25 05/04/25
06:59 06:59 06:59
Actual Weight 166 lb 7 oz 160 lb 8 oz
05/03/25 05:30
05/03/25 05:30
Magnesium 1.6 mg/dl (1.6-2.3) 05/03/25 05:30
Triglycerides 52 mg/dl (10-149) 05/02/25 07:03
LDL Cholesterol, Calc 46 mg/dl 05/02/25 07:03
VLDL Cholesterol, Calc 10 mg/dl (0-30) 05/02/25 07:03
HDL Cholesterol 43 mg/dl 05/02/25 07:03
05/01/25
17:37
Nlm-J-Oopywunxyrv Pept 7280
LAB Results
05/01/25
17:37
Troponin I 0.014
Physical Exam
Constitutional: No acute distress
Cardiovascular: Pedal edema is absent, JVD pressure is normal, Systolic murmur absent and Rhythm/rate is irregular
Respiratory: Respiratory effort normal, Lungs clear to auscul., Wheeze Absent, Crackles Absent, Rhonchi Absent and Labored respirations
Neuro/Psych: AO x 3
Data Reviewed
-
Date of Service: May 03, 2025
Medical Decision Making: Review of Case with other Provider (Dr Helton---ok to discharge, starting amiodarone)
EKG: Other (tele fib in the 60s with pvcs)
--- NOTE | 2025-05-03 08:08 | W.PN.HOSP.TC ---
Today's Communication/Plan
-
discharge
Assessment / Plan
Assessment / Plan
Physical Exam
General: no acute distress, appears comfortable at this time.
HEENT: NormoCephalic, Moist mucous membranes and Atraumatic, hard of hearing
Respiratory: Clear
Cardiac: S1/S2 Irregularly irregular Rhythm; No Murmur or Rub
GI: Soft, Non Tender, Non Distended and Normal Bowel Sounds; No Organomegaly
Musculoskeletal: No Clubbing, No Cyanosis and No Edema
Skin: No Rash
Neuro: AOx3 conversant coherent
84F HX AF recent Cardioversion in Mar 2025 on Eliquis, HX CAD, HTN, HLD pw b/l lower leg swelling and SOB with exertion.
Acute progressive Faulkner with adequate Oxygenation on RA + New b/l Flynn edema
Elevated p BNP
LVEF 42% NMNuc Radha Stress 03/08/25
HX CAD - suspect ICM
- presumed acute HF suspect decompensated HFrEF
- treated with IV lasix 20 mg BID, converted to PO Lasix 40 mg daily on discharge
- ECHO appreciated EF35-40% mod severe tricuspid regurgitation
- Cardio consult appreciated spironolactone and amiodarone started, home nebivolol dc in favor of Metoprolol
HX AF recent CV in Mar 2025
- on Eliquis
- Nebivolol switched to Metoprolol as above
HX CAD
- No CP
- NEG TPNI
- unremarkable EKG
- c/w IMN and BB
HLD
- c/w Lipitor
pHTN
- c/w Valsartan
- HCTz discontinued in favor of Lasix
DVT Px:on chr Eliquis
Full code
IP TLM
Medically stable for discharge home with outpatient follow up recommendations.
Discussed with patient and patient's daughter Asuncion (AKFrancisco Johnson)
Total Time Preparing Discharge __40 minutes including examination of the patient, summary of the hospital stay, instructions for continuing care to all relevant caregivers; and preparation of discharge records, prescriptions, and referral
forms if necessary.
Anticipated Discharge: Today
Subjective/Interval History
-
Date of Service: May 03, 2025
Seen and examined at bedside in no acute distress sitting up comfortably in chair. Reports resolution of symptoms including SOB and LE swelling. Denies new acute issues. Eager to go home.
Objective Data
-
Labs:
Laboratory Results
05/03/25
05:30
WBC 6.8
Hgb 10.4 L
Hct 31.4 L
Plt Count 240
Sodium 133 L
Potassium 3.3 L
Chloride 99
Carbon Dioxide 31 H
BUN 16
Creatinine 0.7
Glucose 88
Calcium 8.4
Vital Signs:
Vital Signs
Temp Pulse Resp BP Pulse Ox
98.4 F 68 20 138/62 92
05/03/25 03:37 05/03/25 03:37 05/03/25 03:37 05/03/25 03:37 05/03/25 03:37
I&O
05/02/25 05/03/25 05/04/25
06:59 06:59 06:59
Intake Total 480 / 480 1140 / 1140
Output Total 1350 / 1350 2150 / 2150
Balance -870 / -870 -1010 / -1010
[2025-05-03 09:01] LABS: ALT (SGPT) 62 U/L (0-35); AST (SGOT) 31 U/L (14-36)
[2025-05-03] MEDS: ELIQUIS 5 MG PO (09:20)
[2025-05-03] MEDS: LIPITOR 20 MG PO (09:21)
[2025-05-03] MEDS: NORVASC 5 MG PO (09:21)
[2025-05-03] MEDS: KCL 20 MEQ PO (09:21)
[2025-05-03] MEDS: DIOVAN 160 MG PO (09:21)
[2025-05-03] MEDS: ALDACTONE 12.5 MG PO (09:22)
[2025-05-03] MEDS: LASIX 40 MG IV (09:23)
[2025-05-03] MEDS: PACERONE 400 MG PO (09:23)
[2025-05-03] MEDS: LOPRESSOR PO (09:28)
[2025-05-03 09:50] VITALS: BP 127/52; PULSE 76; O2SAT 96
--- NOTE | 2025-05-03 10:10 | W.DCSUMMARY ---
Discharge Summary
Discharge Data
Date of Admission: 05/01/25
Date of Discharge: 05/03/25
-
Pending Results: No
Discharge Plan
-
Patient Disposition: Home (Routine Discharge)
Discharge Diagnosis/Procedures: Heart Failure
Atrial Fibrillation
Hypertension
Condition: Fair
Diet: Low Cholesterol and 2 Gram Sodium
Activity: As tolerated
Driving Restrictions: As prior to admission
Bathing Restrictions: None
Blood Work: Follow with Cardiology for repeat Lab work in 1 week and 3 weeks from discharge.
Specialty Instructions: Weigh Daily- Call MD for wt gain/loss 3 lbs overnight/5 lbs in 1 week
Activity Restrictions/Additional Instructions:
Follow up with primary care provider in 1 week of discharge and keep your appointments with Cardiology.
Nebivolol (Bystolic) has been discontinued in favor of metoprolol for Hypertension, heart rate control atrial fibrillation, and for Heart Failure.
Hydrochlorothiazide has been discontinued in favor of Lasix for treatment Heart Failure (Valsartan has been prescribed to replace the valsartan-hydrochlorothiazide combination medication that you were taking before).
Spironolactone has been added to treat heart failure and hypertension.
Amiodarone has been started for atrial fibrillation, take:
400 mg (2 tabs) twice a day 7 days (05/03-05/09), then
200 mg (1 tab) twice a day 7 days (05/10-05/16), then
200 mg daily from then on (05/17-) till otherwise instructed by your drafter civil engineering
Please take medications as prescribed/recommended and follow up with your primary care provider, drafter civil engineering, and/or other healthcare provider involved in your care for refills and/or further adjustment to your medication regimen as necessary.
Instructions: *CBC Heart Failure Instructions
Referrals:
Neno Sapp DO [Family Provider, Family Practice] - in one week
Lew Esteban MD [Active, Cardiology]
Prescriptions:
New
spironolactone 25 mg Tablet
12.5 mg PO DAILY Qty: 30 0RF
metoprolol succinate 100 mg Tablet Extended Release 24 Hr
100 mg PO HS Qty: 30 0RF
valsartan 160 mg Tablet
160 mg PO DAILY Qty: 30 0RF
furosemide [Lasix] 40 mg tablet
40 mg PO DAILY Qty: 30 0RF
amiodarone 200 mg tablet
200 mg PO DIRECTED Qty: 60 0RF
Rx Instructions:
400 mg twice a day 7 days, then
200 mg twice a day 7 days, then
200 mg daily then on
Continued
atorvastatin 20 mg Tablet
20 mg PO DAILY
isosorbide mononitrate 30 mg Tablet Extended Release 24 Hr
30 mg PO QPM
amlodipine 5 mg Tablet
5 mg PO DAILY
omeprazole 40 mg Capsule,Delayed Release(Dr/Ec)
40 mg PO DAILY
potassium chloride [Klor-Con M20] 20 mEq Tablet,Er Particles/Crystals
20 meq PO QPM
calcium carbonate-vitamin D3 [Calcium 500 + D] 500 mg-10 mcg (400 unit) Tablet
1 tab PO QPM
Eliquis 5 mg Tablet
5 mg PO BID
diphenhydramine HCl [Benadryl] 25 mg Capsule
25 mg PO HSPRN PRN (Reason: sleep)
Discontinued
valsartan-hydrochlorothiazide 160-25 mg Tablet
1 tab PO DAILY
nebivolol [Bystolic] 20 mg Tablet
20 mg PO DAILY
Discharge Orders:
Discharge Patient (As Directed); Ordered 05/03/25
Ordered By: Karen Helton
Discharge Date and Time
Print Language: SPANISH
[2025-05-03 10:17] VITALS: BP 127/52; PULSE 97; O2SAT 59
--- NOTE | 2025-05-03 10:27 | PTOTSP ---
The patient demonstrated independence with ambulation and elevations without a device, offering no concerns regarding her mobility upon return home. No PT needs identified at this time, will sign off.
--- NOTE | 2025-05-03 10:29 | CM ---
MD entered order for discharge.
Spoke with Asuncion andrea she said she will drive her home.Informed johnt that ferrara check for Entresto was $47.00.
Offered VN she declined need.
PLAN Home no needs
[2025-05-03 11:01] LABS: TSH 1.83 uIU/ml (0.47-4.68)
== END 2025-05-03 12:00 | disposition home or self-care (01) | DRG 291 ==
LOC: 4 EAST ACU 21:30
PROVIDERS: Emergency Medicine; ADMITTING PHYSICIAN Internal Medicine; ATTENDING PHYSICIAN Internal Medicine; EMERGENCY PHYSICIAN Emergency Medicine; FAMILY PHYSICIAN Family Medicine; OTHER PHYSICIAN Internal Medicine Cardiovascular Disease
DX: I11.0 Hypertensive heart disease with heart failure (principal); I50.23 Acute on chronic systolic (congestive) heart failure; I47.20 Ventricular tachycardia, unspecified; I25.10 Atherosclerotic heart disease of native coronary artery without angina pectoris; I27.20 Pulmonary hypertension, unspecified; I48.0 Paroxysmal atrial fibrillation; I5A Non-ischemic myocardial injury (non-traumatic); E78.00 Pure hypercholesterolemia, unspecified; R73.03 Prediabetes; Z79.01 Long term (current) use of anticoagulants; Z79.899 Other long term (current) drug therapy
CPT/HCPCS: 70450; 71046; 72125; 80048; 80053; 80061; 83735; 83880; 84100; 84443; 84450; 84460; 84484; 85025; 85027; 93005; 93306; 96374; 97162; 97165; 99285

== ENCOUNTER 2025-05-12 11:09 | Day surgery (SDC) | payer MEDICARE, BC, SELFPAY ==
[2025-05-12 12:41] VITALS: BMI 31.1
== END 2025-05-12 13:30 | disposition home or self-care (01) ==
LOC: CATH 11:09
PROVIDERS: ATTENDING PHYSICIAN Internal Medicine Cardiovascular Disease; FAMILY PHYSICIAN Family Medicine; OTHER PHYSICIAN Internal Medicine Cardiovascular Disease
DX: I48.0 Paroxysmal atrial fibrillation (principal); R06.09 Other forms of dyspnea; I47.29 Other ventricular tachycardia; E78.5 Hyperlipidemia, unspecified; I42.9 Cardiomyopathy, unspecified; R60.0 Localized edema; I11.0 Hypertensive heart disease with heart failure; I50.9 Heart failure, unspecified; Z79.01 Long term (current) use of anticoagulants
CPT/HCPCS: 92960; 93005

== ENCOUNTER → 2025-05-30 09:48 | Outpatient (REF) | payer MEDICARE, BC, SELFPAY ==
[2025-05-30 10:52] LABS: Hematocrit 37.3 % (37.0-47.0); Hemoglobin 12.1 g/dL (12.0-16.0); Mean Corp Hgb Conc. 32.4 g/dL (33.0-37.0); Mean Corpuscular Volume 89.7 fL (81.0-99.0); Nucleated Red Blood Cells % 0 %; Platelet Count 228 10^3/uL (130-400); Red Cell Dist. Width 13.6 % (11.5-14.5)
[2025-05-30 11:10] LABS: ALT (SGPT) 28 U/L (0-35); AST (SGOT) 29 U/L (14-36); Albumin 3.6 g/dl (3.5-5.0); Alkaline Phosphatase 63 U/L (38-126); Blood Urea Nitrogen 27 mg/dl (7-17); Calcium 8.9 mg/dl (8.4-10.2); Carbon Dioxide 27 mmol/L (22-30); Chloride 100 mmol/L (98-107); Glucose 90 mg/dl (70-99); Potassium 4.5 mmol/L (3.5-5.1); Sodium 134 mmol/L (135-145); Total Protein 5.9 g/dl (6.3-8.2); eGFR 55.55
== END ==
LOC: SDSPAT 09:48
PROVIDERS: ATTENDING PHYSICIAN Internal Medicine Cardiovascular Disease; FAMILY PHYSICIAN Family Medicine; OTHER PHYSICIAN Internal Medicine Cardiovascular Disease
DX: I48.0 Paroxysmal atrial fibrillation (principal)
CPT/HCPCS: 36415; 80053; 85025; 86850; 86900; 86901; 93005

== ENCOUNTER 2025-06-05 07:41 | Day surgery (SDC) | payer MEDICARE, BC, SELFPAY ==
[2025-05-30 10:03] VITALS: BMI 30.5
--- NOTE | 2025-05-30 10:56 | HPS.HSE ---
Family Physician
-
Family Physician: Neno Sapp
Chief Complaint
-
Paroxysmal atrial fibrillation.
History of Present Illness
The patient is an 84 year old female presenting today for paroxysmal atrial fibrillation. She reports a history of shortness of breath, palpitations, dizziness, and minor lightheadedness associated with her arrhythmia. She previously
underwent 2 cardioversions in the past for this diagnosis, the last of which occurred on 05/16/2025. She is on current pharmacological therapy with Amiodarone and Metoprolol Succinate. She does report compliance with Eliquis for oral anticoagulation
due to a [id number] score of 6 (secondary to age, hypertension, heart failure, coronary artery disease, and diabetes). Given her significant symptoms and the impact her symptoms have on her overall quality of life, it is recommended she proceed
with an Affera atrial fibrillation ablation for more definitive arrhythmia management. She denies any current complaints today such as chest pain, shortness of breath at rest, nausea, vomiting, diarrhea, cough, sore throat, or fever.
Medical History
Past Medical History
Past Medical History: Reports Other
Additional Past Medical History:
1. Paroxysmal atrial fibrillation, status post cardioversion x2; pharmacological therapy with Amiodarone and Metoprolol Succinate, oral anticoagulation with Eliquis.
2. Nonsustained ventricular tachycardia.
3. PVCs, asymptomatic.
4. Hypertension.
5. Hyperlipidemia.
6. Coronary artery disease, nuclear stress test without ischemia 03/2025.
7. Bilateral carotid atherosclerosis without significant stenosis.
8. Congestive heart failure, reduced ejection fraction.
9. Cardiomyopathy.
10. Moderate-severe tricuspid regurgitation.
11. Obstructive sleep apnea, reportedly mild and without device.
12. GERD with history of dysphagia.
13. Chronic constipation.
14. Thyroid nodules.
15. History of recurrent UTIs.
16. Anemia.
17. Osteopenia.
18. Borderline diabetes.
19. Insomnia.
20. Hearing impairment bilaterally.
21. Mild hyponatremia.
22. History of hypokalemia, on oral supplementation.
23. Obesity, BMI 30.5.
Past Surgical History: Reports Other
Additional Past Surgical History:
1. Cardioversion x2.
2. Total abdominal hysterectomy.
3. Bladder sling.
4. Tonsillectomy.
5. Cataract extraction.
Social History
Tobacco: Non-smoker
Alcohol: Occasional
Living: Other (She lives in a 2 story home with her daughter. )
Family History
Family History: Not pertinent
Allergies / Home Medications
Allergy/Medication List:
HOME MEDICATIONS:
1. Amlodipine 5 mg p.o. daily.
2. Eliquis 5 mg p.o. twice a day.
3. Atorvastatin 20 mg p.o. daily.
4. Isosorbide mononitrate 30 mg p.o. every evening.
5. Omeprazole 40 mg p.o. daily.
6. Valsartan 160 mg p.o. daily.
7. Amiodarone 200 mg p.o. daily.
8. Calcium-Vitamin D3 1 tablet p.o. every evening.
9. Benadryl 25 mg p.o. at bedtime as needed.
10. Colace 100 mg p.o. daily.
11. Furosemide 40 mg p.o. daily.
12. Metoprolol Succinate 100 mg p.o. at bedtime.
13. Miralax 17 grams p.o. daily.
14. Spironolactone 12.5 mg p.o. daily.
15. Klor-Con 20 meq p.o. daily.
ALLERGIES: Adhesive. Neosporin. Avelox.
Review of Systems
-
A 12 point ROS was completed and negative except as noted: Yes
Physical Exam
Vital Signs
Blood pressure 103/59. Heart rate 63. Respirations 18. Pulse ox 98% on room air.
Height 5 feet. Weight 70.8 kg. BMI 30.5.
Physical Exam
General: Well Developed, Well Nourished and No Apparent Distress
HEENT: NormoCephalic, Moist mucous membranes, Atraumatic and PERRLA
Respiratory: Clear
Cardiac: Regular Rhythm
GI: Soft, Non Tender, Non Distended and Other (Obese. )
Musculoskeletal: No Edema and Normal Gait & Station
Skin: Warm and Dry
Neuro: AO x 3 and Nonfocal/grossly intact
Laboratory Results
-
DIAGNOSTIC STUDIES as of 05/30/2025: White blood cell count 4.7. Hemoglobin 12.1. Platelet count 228,000. Sodium 134. Potassium 4.5. BUN 27. Creatinine 1.0. Glucose 90. Calcium 8.9. AST 29. ALT 28. Albumin 3.6. Type and screen O positive.
EKG 05/30/2025: Sinus rhythm with first degree AV block. Left axis deviation. Left ventricular hypertrophy with QRS widening. Possible anterior infarct.
Echocardiogram 05/02/2025: Normal LV size with moderately reduced systolic function. LVEF is 35-40% by visual estimation. Global diffuse hypokinesis. Normal RV size and function. Moderate to severe tricuspid regurgitation. Severely elevated
estimated PASP at 80 mmHg.
Stress test 03/08/2025: Small, moderate fixed apical lateral defect consistent with normal wall motion most consistent with soft tissue attenuation. Negative ECG for ischemia with Lexiscan infusion. Systolic function is mildly reduced. The ejection
fraction is 42%. Mild hypokinesis of the basal and mid inferior and inferoseptal rodas. No associated infarction or ischemia seen in this distribution. Would consider further evaluation with echocardiogram if clinically significant. Stress Risk is
moderate risk study (1-3% HI or /year) .
Impression/Plan
-
IMPRESSION/PLAN:
1. Paroxysmal atrial fibrillation: The patient is in need of an Affera atrial fibrillation ablation with Dr. Darrian Diehl on 06/05/2025. The benefits and risks of the procedure have been explained to the patient. The patient understands these risks
and wishes to proceed. She is aware to continue her home Eliquis uninterrupted prior to her procedure; however, she will hold this medication and her Furosemide the morning of her ablation.
[2025-06-05] VITALS (10 sets, daily range): BP systolic 99–130; BP diastolic 41–62; BMI 30.1
[2025-06-05 11:28] LABS: ACT-LR - POC > 397 Seconds (116-155)
[2025-06-05 11:39] LABS: ACT-LR - POC 380 Seconds (116-155)
--- NOTE | 2025-06-05 11:49 | ITS.CL.ABL ---
[employer] - Ablation
Ablation
Procedure Report:
AFIB / A flutter ablation:
Ms. Nair is a very pleasant 85 yr old woman with medical history significant for symptomatic paroxysmal atrial fibrillation with frequent recurrence and cardiomyopathy with LVEF of 35% is here in the EP lab for atrial fibrillation / flutter
ablation
Date of Procedure:
06/05/2025
Indications:
Symptomatic persistent atrial fibrillation
Pre-Operative Diagnosis:
Paroxysmal atrial fibrillation
Post-Operative Diagnosis:
Paroxysmal atrial fibrillation
Procedure Performed:
Atrial fibrillation ablation with wide area circumferential ablation (WACA) approach for pulmonary vein isolation
Posterior wall isolation
Performing Physician:
Darrian Diehl MD
Assistants:
EP staff
Anesthesia:
See anesthesia records
Detailed Description of the Procedure:
Written informed consent was obtained from the patient after a full explanation of the risks and benefits of the procedure including the risks of sedation and anesthesia.
The patient was brought to the electrophysiology laboratory in stable condition in fasting state. Continuous electrocardiographic and hemodynamic monitoring was initiated.
The initial rhythm was sinus bradycardia.
The procedure site was meticulously prepared with surgical scrub and allowed to dry with no pooling. Sterile draping was applied to cover the procedure site. The image intensifier was draped with sterile bag and positioned over the patient. After
infusion of local anesthetic, vascular access was obtained under ultrasound guidance and sheaths were placed over guide wire as detailed below.
The images of the ultrasound of the femoral vessels were stored in patient chart.
Sheath and Catheter Placement:
The following catheters / sheaths were placed
Sheaths:
Agilis sheath in right femoral vein upgraded from 9Fr in right femoral vein
9Fr in right femoral vein
Catheters:
The Affera Sphere 9 catheter -bidirectional D/F - at locations of HRA, RV, LA and LV.
ICE catheter -AccuNav - at locations of RA, SVC, and RV.
Heparin was initiated after the access was obtained.
Intracardiac ECHO:
An 8-Namibian AcuNav intracardiac ECHO (ICE) probe was advanced through the 9-Namibian sheath in the left femoral vein into the right atrium under fluoroscopic and ICE ultrasound image guidance and a baseline ECHO study was performed. The left atrial
size was dilated. There was trace tricuspid regurgitation. The aortic valve was grossly normal. There was moderate to severe left ventricular systolic dysfunction. There is no pericardial effusion. The ERIKA has baseline low velocities. The pulmonary
had good flow identified.
During the procedure, ICE was used for monitoring of complications, guidance of trans-septal puncture, monitor the catheter position and tracking ablation lesions. No change in the pericardial space noted throughout the procedure.
Trans-septal Puncture:
Heparin was initiated and infused to maintain appropriate ACT. A J-tipped guidewire was advanced through into the superior vena cava under fluoroscopic and ICE guidance. The Agilis sheath was advanced into the superior vena cava over a guidewire.
The BRK needle was placed inside the Agilis sheath. The apparatus was withdrawn until it was in contact with the fossa ovalis. The position was adjusted based on fluoroscopy and ultrasound images from ICE. Under hemodynamic and ICE ultrasound
guidance, left atrium was cannulated by advancing the needle. Once atrial septum was cannulated, the needle was pulled back and the guide wire was advanced through the needle into the left atrium. The guide wire was advanced into the left superior
pulmonary vein. Both the sheath and the dilator was advanced into the left atrium. The dilator with the needle was withdrawn. Blood was aspirated from the Agilis sheath and arterial blood confirmed. The sheath was flushed. Saline injection noted
into the left atrium on ICE. The waveform of the LA pressure was recorded. The mapping catheter was advanced in the Agilis sheath into the left pulmonary vein.
3D Electroanatomic Mapping:
Using the Sphere 9 Affera catheter advanced through Agilis sheath into the left atrium, an electroanatomic map (EAM) of the left atrium was created using RoverTowna� mapping system with [employer]-GeoEye software. The map was used for localization of catheter
position and tacking of ablation lesions. The EAM of the left atrium showed a total of 4 PVs with two left and the two right sided pulmonary veins with all electrically connected to the body the LA. It showed scattered extensive scar on the
posterior and anterior rodas of the LA. The LA was dilated in size.
Following the EAM, preparation were made for ablation.
Ablation:
Ablation # 1: Pulmonary vein Isolation:
Pulsed field ablation was performed using an open irrigation, bidirectional, contact sensing, dual energy ablation catheter (RoverTowna sphere -9) by completing the circumferential lesions around the left and right pulmonary veins achieving pulmonary
vein isolation.
There was extensive scar noted in the posterior wall with slowing of conduction making a substance for reentry flutter.
Ablation # 2: Roof line Formation:
There was a clear channel of electrical activity left in the posterior wall with multiple CFAE and AF areas on the roof and ablation in that area increased the risk of atrial flutter and decision was made to create a roof line to block a slow
conduction. A set of pulsed field ablations were placed on the roof line connecting the left superior pulmonary vein ablation lesions to the right superior pulmonary vein lesions rings.
Ablation # 3: Posterior wall isolation with the Box lesions set Formation:
There was a significant fractionation seen in the posterior wall and LA AF foci along with CFAE made it clear as the posterior wall is critical in maintaining the atrial fibrillation and the decision was made to isolate the posterior wall by
creating a �Box� lesions.
A set of Pulsed field ablations were placed on the floor line connecting the left inferior pulmonary vein ablation lesions to the right inferior pulmonary vein lesions rings.
The sphere 9 in the posterior wall showed entrance block and the pacing from the posterior wall showed no exit from the box lesions confirming the exit block.
Confirmation of the PVI and bidirectional block:
Following achievement of entrance block at the pulmonary veins, pacing from the Sphere 9 affera catheter in each of the four veins at 20 milliamps for 4 milliseconds showed entrance and exit block.
The LA was mapped with The RoverTowna� mapping system with Macrotek-1 software in sinus rhythm confirming the line of block at the ablation lesions lines.
EP study:
Sinus Node Function: The sinus node functions are within acceptable normal range.
Atrioventricular Toni Function: Normal AV conduction noted.
Procedure End
ICE study was done again that showed no epicardial accumulation. No complications noted.
Following the completion of the EP study, catheters were removed. Protamine 30 mg was given at the end of the procedure and ACT was checked repeatedly. The sheaths were removed and hemostasis achieved with VASCADE and manual compression after
acceptable ACT is achieved.
Left atrial Pressure:
Pre-Procedure: Mean LA pressure was 8mmHg
Post-Procedure: Mean LA pressure was 22mmHg
Post-Procedure: Mean RA pressure was 8mmHg
Fluoro Time:
0
Estimated Blood loss:
<10 cc
Specimens Removed:
None.
Implants / Devices:
None
Urine output:
None
Packs / Drains/ Tubes:
None
Instrument / Sponge Count Correct:
Yes
Complications of the Procedure:
None
Condition of Patient at Time of Transfer:
Hemodynamically stable with no neurological or vascular compromise.
Summary:
Successful atrial fibrillation ablation with circumferential bidirectional line of block at pulmonary venin antra (Pulmonary vein isolation), roof flutter line creation, Posterior wall isolation.
Figures from the Procedure:
Figure 1: The electroanatomic mapping (EAM) of the left atrium with bipolar voltage (purple indicates normal electrical activity with red as no myocardial muscle electric activity indicating a line of block or scar.
== END 2025-06-05 15:05 | disposition home or self-care (01) ==
LOC: CATH 07:41
PROVIDERS: ATTENDING PHYSICIAN Internal Medicine Cardiovascular Disease; FAMILY PHYSICIAN Family Medicine; OTHER PHYSICIAN Internal Medicine Cardiovascular Disease
DX: I48.19 Other persistent atrial fibrillation (principal); I11.0 Hypertensive heart disease with heart failure; E78.5 Hyperlipidemia, unspecified; I25.10 Atherosclerotic heart disease of native coronary artery without angina pectoris; I42.9 Cardiomyopathy, unspecified; I07.1 Rheumatic tricuspid insufficiency; G47.33 Obstructive sleep apnea (adult) (pediatric); K21.9 Gastro-esophageal reflux disease without esophagitis; R13.10 Dysphagia, unspecified; K59.09 Other constipation; E04.1 Nontoxic single thyroid nodule; Z87.440 Personal history of urinary (tract) infections; D64.9 Anemia, unspecified; M85.80 Other specified disorders of bone density and structure, unspecified site; R73.03 Prediabetes; G47.00 Insomnia, unspecified; H91.93 Unspecified hearing loss, bilateral; E87.1 Hypo-osmolality and hyponatremia; E66.9 Obesity, unspecified; Z68.30 Body mass index [BMI] 30.0-30.9, adult; E87.6 Hypokalemia; Z79.899 Other long term (current) drug therapy; I44.0 Atrioventricular block, first degree; Z79.01 Long term (current) use of anticoagulants; I45.4 Nonspecific intraventricular block; I50.22 Chronic systolic (congestive) heart failure; Z88.1 Allergy status to other antibiotic agents; Z90.710 Acquired absence of both cervix and uterus; Z91.048 Other nonmedicinal substance allergy status; Z98.49 Cataract extraction status, unspecified eye
CPT/HCPCS: C1733; C1769; C1894; C1730; C1766; C1892; C1759; 85347; 86900; 86901; 93005; 93656; 93657; C1760